=== PATIENT | female | born 1985 | race Caucasian/White ===

== ENCOUNTER → 2024-01-12 | Outpatient (CLI) | payer SELFPAY ==
[2024-01-12 09:52] LABS: Creatinine,Urine Random 213.9 mg/dL; Protein/Creatinine Ratio,Urine 0.037
[2024-01-12 11:41] LABS: Albumin 4.3 g/dL (3.8-4.9); Blood Urea Nitrogen 12.9 mg/dL (9.0-27.0); Calcium 9.1 mg/dL (8.7-10.3); Chloride 106 mmol/L (96-109); Chol/HDL Ratio 1.79 Ratio; Glucose 88 mg/dL (70-110); LDL Cholesterol,Calculated 59.4 mg/dL (0.0-131.0); Phosphorus 3.9 mg/dL (2.4-5.1); Potassium 3.9 mmol/L (3.5-5.5); Sodium 141 mmol/L (135-145)
[2024-01-12 16:43] LABS: Appearance,Urine Turbid (Clear); Bacteria,Urine 3+ (None Seen); Bilirubin,Urine Negative (Negative); Blood,Urine Moderate (Negative); Color,Urine Yellow (Yellow); Ketones,Urine Negative (Negative); Nitrite,Urine Negative (Negative); Specific Gravity,Urine 1.021 (1.001-1.030)
== END | disposition home or self-care (01) ==
LOC: LABWHC1 08:21
PROVIDERS: ATTEND Internal Medicine Nephrology
DX: Z00.5 Encounter for examination of potential donor of organ and tissue (principal)
CPT/HCPCS: 36415; 80061; 80069; 81001; 82043; 82570; 83036; 84156; 86900; 86901